=== PATIENT | male | born 1990 | race Caucasian/White ===

== ENCOUNTER → 2023-02-21 | Day surgery (SDC) | payer OTHER ==
[~2023-02-21] MED LIST: ABILIFY; DEXAMETHASONE SOD PHOS INJ 4 MG/ML SDV ONE; DEXMEDETOMIDINE HCL 200 MCG/2 ML VIAL ONE; LACTATED RINGER'S 1,000 ML ONE; LIDOCAINE HCL 2% LOCAL INJ 5 ML SDV VIAL INJ ONE; ONDANSETRON HCL INJ 2MG/ML 2ML 2 MG/ML VIAL ONE; PROPOFOL IV EMULSION 10 MG/ML 20 ML VIAL ONE; SEVOFLURANE INHAL SOLN 250 ML PEN BTL ONE
[2023-02-21] MEDS: MEPERIDINE HCL INJ 25 MG/ML VIAL ONE ×2 (13:35→13:40)
[2023-02-21 14:07] VITALS: BP 136/89; PULSE 71; RESP 18; O2SAT 96
== END | disposition home or self-care (01) ==
LOC: OR 07:33
PROVIDERS: ATTEND Specialist
DX: S83.511A Sprain of anterior cruciate ligament of right knee, initial encounter (principal); M23.51 Chronic instability of knee, right knee; J45.909 Unspecified asthma, uncomplicated; X58.XXXA Exposure to other specified factors, initial encounter
CPT/HCPCS: 29888; C1713 ×2; J0690; J1100; J2001; J2175; J2405; J2704; J7121